=== PATIENT | male | born 1990 | race Caucasian/White ===

== ENCOUNTER 2022-05-08 10:04 | Emergency (ER) | payer BC ==
[2022-05-08] MEDS ORDERED: Ketorolac 60 MG/2 ML SDV IM ONE (14:56)
== END 2022-05-08 16:21 | disposition home or self-care (01) ==
LOC: MW.ED 10:04
DX: S39.012A Strain of muscle, fascia and tendon of lower back, initial encounter (principal); F17.210 Nicotine dependence, cigarettes, uncomplicated; Z79.899 Other long term (current) drug therapy; W01.0XXA Fall on same level from slipping, tripping and stumbling without subsequent striking against object, initial encounter
CPT/HCPCS: 72070; 96372; 99283; J1885